=== PATIENT | female | born 2000 | race Caucasian/White ===

== ENCOUNTER 2019-04-03 20:17 | Inpatient (IN) | payer OTHER, MEDICAID, SELFPAY ==
[2014-03-21 11:29] VITALS: BMI 19.5
[2019-04-03 19:35] VITALS: BMI 22.8
[2019-04-03] MEDS: Lactated Ringers 1,000 ML 50 ML IV (20:50)
[2019-04-03] MEDS: Lactated Ringers 500 ML 999 ML IV (20:51)
[2019-04-03 21:03] LABS: Absolute Lymphocyte Count 0.88 X10^3/uL (0.83-4.51); Absolute Neutrophil Count 19.1 X10^3/uL (2.0-7.7); Basophil# 0.03 X10^3/uL; Basophil% 0.1 % (0-1); Eosinophil# 0.04 X10^3/uL; Eosinophils% 0.2 % (0-5); Hematocrit 35.5 % (37-47); Hemoglobin 12.3 g/dL (12.0-15.0); Lymphocyte # 0.88 X10^3/ul (4.0); Lymphocyte % 4.1 % (19-41); Mean Corp Hgb Conc 34.6 g/dL (32-36); Mean Corpuscular Hgb 33.2 pg (27.0-32.0); Mean Corpuscular Volume 95.7 fL (81-99); Mean Platelet Vol. 10.2 fl (6.2-12.0); Monocyte# 1.06 X10^3/uL; NRBC Flagged by Analyzer 0 % (0-5); Neutrophil # 19.14 X10^3/uL (2.7-7.7); Platelet Count 268 K/mm3 (150-450); RBC Distribution Width CV 11.9 % (11.6-14.6); Red Blood Count 3.71 M/mm3 (4.2-5.4); White Blood Count 21.3 K/mm3 (4.4-11.0)
--- NOTE | 2019-04-03 22:06 | PCM.HP.OB ---
History Date of Admission: 04/03/19 Final RAMA: 04/15/19 Gestational age: 38 Weeks and 2 Days History of this : This is a 18 year-old, G 1P0 at 38.2 weeks history of IUGR 8th percentile. Presents to labor and delivery in active labor found to be 5 cm at time of admission. Allergies No Known Allergies Allergy (Verified 03/19/14 15:48) Home Medications: Home Medications Ibuprofen [Advil] 200 mg PO Q6H PRN PRN 03/19/14 Multivitamins,Therapeutic [Multivitamin] 1 tablet PO DAILY 03/19/14 Smoking Status: Never smoker Alcohol: None Number of Fetus(es): 1 NST - FHR Rate Baby A Baseline: 150 Variability:: Moderate Accelerations:: 15 x 15 NST Reactive:: Yes Uterine Activity:: q1-2 History Past Pregnancies: Past Pregnancies Delivery Date Name GA/ Weeks Outcome Route Wt Sex Labor Length Anesthesia Delivery Location Provider FOB Physical Exam General: Alert, Oriented x3 Abdomen: Soft, Non Tender, Gravid Neurological: Cranial nerves II-XII grossly intact SCHEDULE CHECKER: Normal external genitalia Estimated gestational size: Small for gestational age Presentation: Cephalic Cervix Dilation (cm): 5 Assessment/Plan This is a 18 year-old, G 1P0 at 38.2 weeks in active labor, IUGR 8th percentile admit to L&D monitor FHR/TOCO anticipate epidural for pain mgmt if requested
[2019-04-03] MEDS: fentaNYL-bupivacaine (epidural) 100 ML BAG EPIDURAL (22:28)
[2019-04-04] VITALS (7 sets, daily range): BP systolic 112–146; BP diastolic 58–87; PULSE 64–101; RESP 16–18; TEMP 36.5–36.8; O2SAT 95–97
--- NOTE | 2019-04-04 00:20 | PCM.PN.BLA ---
Progress Note pt seen at bedside, AROM performed- Clear fluid. 9/100/+1.
[2019-04-04] MEDS: Lactated Ringers 500 ML 999 ML IV ×2 (01:46→03:55)
[2019-04-04] MEDS: Ondansetron 4 MG/2 ML Vial IV (01:51)
[2019-04-04] MEDS: Acetaminophen 500 MG Tablet 1000 MG PO ×3 (02:41→22:49)
[2019-04-04] MEDS: Oxytocin 30 units/NS 500 ml 30 UNITS/500 ML IV.SOLN 334 UNITS IV (02:57)
--- NOTE | 2019-04-04 03:34 | OP.PCM_ITS ---
Problem List (1) Vaginal delivery Status: Acute (2) First degree perineal laceration Status: Acute (3) Maternal fever during labor Status: Acute Vaginal Delivery Maternal Presentation: Active Labor Amniotic Membrane Rupture Type: Artificial Amniotic Fluid Description: Clear Final RAMA: 04/15/19 Final RAMA Source: US <20 weeks Gestational age: 38 Weeks and 3 Days Date of Procedure: 04/04/19 Pre-Operative Diagnosis: Active Labor Post-Operative Diagnosis: Surgery/ Procedure Performed: Spontaneous Vaginal Delivery Type of Anesthesia: Epidural Description of Procedure: Patient complete and with pushing deep periodic variable decelerations with every contraction. En route to Hospital and notified of tracin g and poor initial pushing efforts and evaluation of tracing. Arrived with on unit. Maternal fever 101.9 and patient warm to the touch. tachycardia but resolved. Suspected triple I. Assisted with pushing efforts and fundal pressure to expedite delivery. Discussed possible vacuum extraction but good pushing efforts and not needed, decent to +4 station. Etiquette Teacher called to room. head delivered with maternal efforts, body forth coming. APGARS 5, 7, 8 respectively. Infant delivered and placed on maternal abdomen, poor tone, color and no spontaneous cry. Cord clamped and cut and handed to awaiting nursing staff to warmer. VBG collected, unable to collected ABG as artery empty. Pitocin started for active 3rd stage management. Placenta partial delivery and attempted manual removal. Unable to fully remove, completed removal of placenta. 3 vessel cord. Placenta removed mostly intact with separation of some tissue.Placenta sent to pathology. Perineum inspected and revealed 1st degree perineal laceration. Repaired under epidural analgesia with 3.0 vicryl, well approximated and hemostasis achieved. vaginal sweep completed. Sponge and instrument count correct. Mom and baby stable, baby placed skin to skin, family bonding well. planning to breastfeed. Ancef 2gm IV q8h x 2 doses for suspected triple I and manual removal of placen ta. Presentation: Vertex Placental Delivery Description: Spontaneous Placenta Disposition: [facility] Cord Vessel Description: 3 Vessels Cord Gases drawn per routine: VBG - unable to get ABG Cord Entanglement: None Estimated Blood Loss: 400ml Infant A gender: Female (1 minute): 5 - 8 at 10 minutes (5 minute): 7 Episiotomy Description: None Laceration: Perineal Extension/lac, 1st degree Medications given after delivery: IV Pitocin
--- NOTE | 2019-04-04 03:41 | PLAC_PTH ---
PATIENT: MESFIN TRACY LOC: [facility] U#:[id number] AGE/SX: 18/F ROOM: WP009 RE04/03/[address]: Dr. Samaria Michael, MDDOB: 2000 BED: 1 DIS: 04/06/2019 SPEC #: [id number] RECD: 04/04/19 03:57 STATUS: PHONG JUAN F #: [id number] TIP: 04/04/19 03:[address]: Samaria Michael DEPT: SURGICAL PATHOLOGY RECD BY: Raza Kelsey ENTERED: 04/04/19 09:48 SP TYPE: PLACENTA OTHR DR: Dr. Mer Regan MD Tissues: Placenta, NOS Procedures: Surgery Specimen Level V HEADER OPERATION: Vaginal delivery PRE-OP DIAGNOSIS: IUGR, suspected triple I TISSUE SUBMITTED: Placenta MICROSCOPIC DIAGNOSIS Placenta: Placental disc - third trimester placenta, fragmented (356 gm). - A focal area of infarction (0.5 cm in greatest dimension). Membranes - mild acute chorioamnionitis. Umbilical cord - three blood vessels and no pathologic diagnosis. SJ:huma 03/06/20 MICROSCOPIC DESCRIPTION Slides are reviewed. GROSS DESCRIPTION SPECIMEN: PLACENTA / CLINICAL INFORMATION: A. Weight: 2.233 kg B. Gestational Age: 38 weeks C. Sex: Female PLACENTAL WEIGHT (POST FIXATION): The placental pieces weigh in aggregate 356 gm. PLACENTAL DIMENSIONS: The largest piece of body of the placenta measures 13 x 13 x 4 cm and the smaller pieces measure in aggregate 8 x 8 x 3 cm. PLACENTAL SHAPE: Received is a disrupted placenta in three pieces. The completeness of the placenta cannot be assessed due to fragmented nature of the body of the placenta. PLACENTAL WEIGHT FOR GESTATIONAL AGE: Within 10-99th percentile MEMBRANES - Present A. Insertion: Marginal B. Site of rupture from edge: The membranes attached to the largest piece of the placenta are fragmented and distance of rupture cannot be assessed. C. Color of membrane: Fernández-sears D. Abnormalities: None UMBILICAL CORD - Present A. Color: Fernández-sears B. Insertion: Marginal C. Length: 26 cm D. Diameter: 1 cm E. Number of vessels: Three F. Abnormalities: None PLACENTAL DISC - Present A. Color of surface: Fernández-sears B. surface abnormalities: None C. Maternal cotyledons: Intact with minimal tears D. Attached retro placental clot: No clot E. Cut surface: Dark red and spongy F. Lesions: Sections reveal a fernández, indurated lesion measuring 0.5 cm in greatest dimension. G. Separate clot: Absent SECTIONS SUBMITTED: 1. Membrane roll 2. Cord, maternal end 3. Cord, end 4. Placental disc, and maternal surfaces 5. Placental disc, and maternal surfaces 6. Placental disc, and maternal surfaces, lesion SJ:rg 04/05/19 TC:2 CPT: 23560
[2019-04-04] MEDS: Cefazolin 2 GM in 0.9% Normal Saline 100 ML IV ×2 (04:31→14:03)
[2019-04-04] MEDS: 0.9% Saline Lock 10 ML Syringe IV ×2 (04:31→05:40)
[2019-04-04] MEDS: Ibuprofen 600 MG Tablet PO ×2 (10:08→18:25)
[2019-04-05] MEDS: Ibuprofen 600 MG Tablet PO ×2 (00:21→19:00)
[2019-04-05 04:05] VITALS: BP 108/66; PULSE 82; RESP 14; TEMP 36.6
[2019-04-05 04:30] LABS: Absolute Lymphocyte Count 2.07 X10^3/uL (0.83-4.51); Absolute Neutrophil Count 18.6 X10^3/uL (2.0-7.7); Basophil# 0.06 X10^3/uL; Basophil% 0.3 % (0-1); Eosinophil# 0.12 X10^3/uL; Eosinophils% 0.6 % (0-5); Hemoglobin 10.5 g/dL (12.0-15.0); Lymphocyte # 2.07 X10^3/ul (4.0); Lymphocyte % 9.6 % (19-41); Mean Corp Hgb Conc 33.9 g/dL (32-36); Mean Corpuscular Volume 97.5 fL (81-99); Mean Platelet Vol. 10.1 fl (6.2-12.0); Monocyte# 0.48 X10^3/uL; Monocyte% 2.2 % (0-10); NRBC Flagged by Analyzer 0 % (0-5); Neutrophil # 18.62 X10^3/uL (2.7-7.7); Neutrophil % 86.6 % (47-70); Platelet Count 215 K/mm3 (150-450); RBC Distribution Width CV 12.6 % (11.6-14.6); RBC Distribution Width SD 44.7 fl (35.1-43.9); Red Blood Count 3.18 M/mm3 (4.2-5.4); White Blood Count 21.5 K/mm3 (4.4-11.0)
[2019-04-05 09:50] VITALS: BP 132/86; PULSE 77; RESP 16; TEMP 36.6; O2SAT 96
[2019-04-05] MEDS: Senna/Docusate Sodium 1 Tablet PO (10:07)
[2019-04-05] MEDS: Acetaminophen 500 MG Tablet 1000 MG PO (10:07)
[2019-04-05 14:45] VITALS: BP 121/80; PULSE 91; RESP 16; TEMP 36.1
--- NOTE | 2019-04-05 15:00 | CASEMGMT ---
Social Work Labor and Delivery Consult received for maternal history of depression. Baby has also been admitted to the [facility]. Chart has been reviewed. Attempted to meet with mother of baby (MOB) this date, but MOB just getting back from the SCN and pumping, then planning to take a nap. milking worker offered to come back tomorrow, as baby remains in SCN and MOB will be a hospital still. MOB agreeable. Plan: See MOB as time allows on 04.06.2019. -JEANNETTE Mckay, BEATER ENGINEER HELPER
--- NOTE | 2019-04-05 17:59 | PN.OBGYN_ITS ---
Patient Problems: Active and Suspected Problems (Last Updated 04/03/19 @ 22:07 by Samaria Holley MD) Vaginal delivery (Acute) First degree perineal laceration (Acute) Maternal fever during labor (Acute) Subjective: Seen in special care nursery. She is feeling well. Pain is controlled. Ambulating and voiding without difficulty. She denies lightheadedness, dizziness, chest pain, shortness of breath, leg pain. Lochia normal. She is breast-feeding. - Physical Exam Vitals/I&O's: Vital Signs Temp Pulse Resp BP Pulse Ox 97.0 F L 91 16 121/80 H 96 04/05/19 14:45 04/05/19 14:45 04/05/19 14:45 04/05/19 14:45 04/05/19 09:50 Oxygen Delivery Method Room Air Weight: 137 lb 6.4 oz Body Mass Index (BMI) 22.8 Intake and Output for Last 24 Hours 04/03/19 04/04/19 04/05/19 23:59 23:59 23:59 Intake Total 605.83 / 605.83 2290.00 / 2290.00 Balance 605.83 / 605.83 2290.00 / 2290.00 General: Alert, No apparent distress HEENT: Atraumatic Abdomen: Soft, Non Tender, - - FF@U-1 Extremities: No edema, No Calf Tenderness Skin: No rashes Neurological: Neuro grossly intact Psych/Mental Status: Normal Affect, Appropriate Laboratory Results 04/05/19 04:10: WBC 21.5 H, RBC 3.18 L, Hgb 10.5 L, Hct 31.0 L, MCV 97.5, MCH 33.0 H, MCHC 33.9, RDW Std Deviation 44.7 H, RDW Coeff of Bora 12.6, Plt Count 215, MPV 10.1, Immature Gran % (Auto) 0.700, Neut % (Auto) 86.6 H, Lymph % (Auto) 9.6 L, [place] % (Auto) 2.2, Eos % (Auto) 0.6, Baso % (Auto) 0.3, Absolute Neuts (auto) 18.6 H, Absolute Lymphs (auto) 2.07, Nucleated RBC % 0 Current Medications Acetaminophen (Tylenol) 1,000 mg PO Q8H PRN PRN PRN Reason: Pain Score 1-3/10 Last Admin: 04/05/19 10:07 Dose: 1,000 mg Documented by: Bisacodyl (Dulcolax) 10 mg RECTAL UD PRN PRN Reason: If no BM Dibucaine (Dibucaine) 1 applic TOPICAL TID PRN PRN; Protocol PRN Reason: Discomfort Hydrocortisone (Hytone) 1 applic TOPICAL TID PRN PRN; Protocol PRN Reason: Discomfort Naloxone HCl 4 mg/ Dextrose 504 mls @ 0 mls/hr IV .Q0M PRN; Protocol PRN Reason: To maintain Resp. rate >10 Ibuprofen (Motrin) 600 mg PO Q6H PRN PRN PRN Reason: Pain Score 1-3/10 Last Admin: 04/05/19 00:21 Dose: 600 mg Documented by: Methylergonovine Maleate (Methergine) 0.2 mg IM X1 PRN PRN Reason: Excess bleeding/uterine atony Nalbuphine HCl (Nubain) 5 mg IV Q3H PRN PRN PRN Reason: ITCHING Naloxone HCl (Narcan) 0.02 mg IV Q1M PRN PRN Reason: RR< 10 AND PT UNRESPONSIVE Ondansetron HCl (Zofran) 4 mg IV Q4H PRN PRN PRN Reason: Nausea Senna/Docusate Sodium (Senokot-S, Kristyn-Colace) 1 - 2 tablet PO DAILY PRN PRN PRN Reason: Constipation Last Admin: 04/05/19 10:07 Dose: 2 tablet Documented by: Simethicone (Mylicon) 80 mg PO PCHS PRN PRN Reason: Indigestion/Stomach pain Sodium Chloride () 5 - 15 ml IV UD PRN PRN Reason: SALINE FLUSH Last Admin: 04/04/19 05:40 Dose: 10 ml Documented by: Medical Necessity - Tobacco Use Smoking Status: Never smoker Assessment/Plan All Active Problems (Last Updated 04/03/19 @ 22:07 by Samaria Michael MD) Vaginal delivery (Acute) First degree perineal laceration (Acute) Maternal fever during labor (Acute) PPD#1 s/p - Pt doing well - Afebrile - - Baby in special care nursery - Dispo: Routine care
[2019-04-05 21:34] VITALS: BP 124/70; PULSE 75; RESP 18; TEMP 36.4
[2019-04-06 02:00] VITALS: BP 121/70; PULSE 81; RESP 18; TEMP 36.6
[2019-04-06] MEDS: Ibuprofen 600 MG Tablet PO (05:29)
[2019-04-06 09:45] VITALS: BP 120/80; PULSE 65; RESP 16; TEMP 36.7
[2019-04-06] MEDS: Acetaminophen 500 MG Tablet 1000 MG PO (10:15)
[2019-04-06] MEDS: Senna/Docusate Sodium 1 Tablet PO (10:15)
--- NOTE | 2019-04-06 13:11 | DCINST_ITS ---
Discharge Diet: No Restrictions Discharge Activity: May Drive, May Shower May resume sexual activity in: 6 weeks Weight Bearing Status: Weight bearing as tolerated Additional Instructions: If you experience any of the following, contact your healthcare provider. * Bleeding that soaks a pad every hour for 2 hours * Fever 100.4 or higher * Unrelieved incision or abdominal pain * Swelling, redness, discharge or bleeding from your incision or episiotomy site * Your incision begins to separate * Problems urinating (including inability to urinate or burning while urinating). * Visual changes * Severe headache * Flu-like symptoms * Pain or redness in one of both of your breasts * Pain, warmth, tenderness or swelling in your legs, especially the calf area * Frequent nausea and vomiting * Symptoms of depression or anxiety If you experience any of the following, call 911 or go to the nearest Emergency Room. * Chest pain * Problems breathing * Seizure activity * Partial or complete paralysis of a body part, slurred speech, weakness or drooping of the face, or a sudden inability to walk or hold your balance Allergies/Adverse Reactions: Allergies No Known Allergies Allergy (Verified 03/19/14 15:48) Medications to take at Discharge Multivitamins,Therapeutic [Multivitamin] 1 tablet PO DAILY 03/19/14 Ibuprofen [Motrin] 600 mg PO Q6H PRN PRN #40 tab 04/06/19 The following prescriptions were given: Ibuprofen [Motrin] 600 mg PO Q6H PRN PRN #40 tab PRN Reason: Pain Score 1-3/10 Transmission Status: Pending to [id number] Primary Care Physician: Mer Regan MD [Primary Care Provider] - Test Results: Test results from this visit will be discussed in further detail at your follow- up appointment, if applicable.
--- NOTE | 2019-04-06 13:11 | PCM.DCVAG ---
Discharge Diet: No Restrictions Discharge Activity: May Drive, May Shower May resume sexual activity in: 6 weeks Weight Bearing Status: Weight bearing as tolerated Additional Instructions: If you experience any of the following, contact your healthcare provider. Bleeding that soaks a pad every hour for 2 hours Fever 100.4 or higher Unrelieved incision or abdominal pain Swelling, redness, discharge or bleeding from your incision or episiotomy site Your incision begins to separate Problems urinating (including inability to urinate or burning while urinating). Visual changes Severe headache Flu-like symptoms Pain or redness in one of both of your breasts Pain, warmth, tenderness or swelling in your legs, especially the calf area Frequent nausea and vomiting Symptoms of depression or anxiety If you experience any of the following, call 911 or go to the nearest Emergency Room. Chest pain Problems breathing Seizure activity Partial or complete paralysis of a body part, slurred speech, weakness or drooping of the face, or a sudden inability to walk or hold your balance Allergies/Adverse Reactions: Allergies No Known Allergies Allergy (Verified 03/19/14 15:48) Medications to take at Discharge Multivitamins,Therapeutic [Multivitamin] 1 tablet PO DAILY 03/19/14 Ibuprofen [Motrin] 600 mg PO Q6H PRN PRN #40 tab 04/06/19 The following prescriptions were given: Ibuprofen [Motrin] 600 mg PO Q6H PRN PRN #40 tab PRN Reason: Pain Score 1-3/10 Transmission Status: Pending to [id number] Primary Care Physician: Mer Regan MD [Primary Care Provider] - Test Results: Test results from this visit will be discussed in further detail at your follow-up appointment, if applicable.
--- NOTE | 2019-04-06 13:11 | PCM.PN.OB ---
Patient Problems: Active and Suspected Problems (Last Updated 04/03/19 @ 22:07 by Samaria Michael MD) Vaginal delivery (Acute) First degree perineal laceration (Acute) Maternal fever during labor (Acute) Subjective: No complaints - Physical Exam Vitals/I&O's: Vital Signs Temp Pulse Resp BP Pulse Ox 98.0 F 65 16 120/80 96 04/06/19 09:45 04/06/19 09:45 04/06/19 09:45 04/06/19 09:45 04/05/19 09:50 Oxygen Delivery Method Room Air Weight: 137 lb 6.4 oz Body Mass Index (BMI) 22.8 Intake and Output for Last 24 Hours 04/04/19 04/05/19 04/06/19 23:59 23:59 23:59 Intake Total 2290.00 / 2290.00 Balance 2290.00 / 2290.00 General: Alert, Oriented x3 Abdomen: Soft, Non Tender, Non-Distended - ff mid & below Extremities: No Calf Tenderness Neurological: Cranial nerves II-XII grossly intact Current Medications Acetaminophen (Tylenol) 1,000 mg PO Q8H PRN PRN PRN Reason: Pain Score 1-3/10 Last Admin: 04/06/19 10:15 Dose: 1,000 mg Documented by: Bisacodyl (Dulcolax) 10 mg RECTAL UD PRN PRN Reason: If no BM Dibucaine (Dibucaine) 1 applic TOPICAL TID PRN PRN; Protocol PRN Reason: Discomfort Hydrocortisone (Hytone) 1 applic TOPICAL TID PRN PRN; Protocol PRN Reason: Discomfort Naloxone HCl 4 mg/ Dextrose 504 mls @ 0 mls/hr IV .Q0M PRN; Protocol PRN Reason: To maintain Resp. rate >10 Ibuprofen (Motrin) 600 mg PO Q6H PRN PRN PRN Reason: Pain Score 1-3/10 Last Admin: 04/06/19 05:29 Dose: 600 mg Documented by: Methylergonovine Maleate (Methergine) 0.2 mg IM X1 PRN PRN Reason: Excess bleeding/uterine atony Nalbuphine HCl (Nubain) 5 mg IV Q3H PRN PRN PRN Reason: ITCHING Naloxone HCl (Narcan) 0.02 mg IV Q1M PRN PRN Reason: RR< 10 AND PT UNRESPONSIVE Ondansetron HCl (Zofran) 4 mg IV Q4H PRN PRN PRN Reason: Nausea Senna/Docusate Sodium (Senokot-S, Kristyn-Colace) 1 - 2 tablet PO DAILY PRN PRN PRN Reason: Constipation Last Admin: 04/06/19 10:15 Dose: 2 tablet Documented by: Simethicone (Mylicon) 80 mg PO PCHS PRN PRN Reason: Indigestion/Stomach pain Sodium Chloride () 5 - 15 ml IV UD PRN PRN Reason: SALINE FLUSH Last Admin: 04/04/19 05:40 Dose: 10 ml Documented by: Medical Necessity - Tobacco Use Smoking Status: Never smoker Assessment/Plan All Active Problems (Last Updated 04/03/19 @ 22:07 by Samaria Michael MD) Vaginal delivery (Acute) First degree perineal laceration (Acute) Maternal fever during labor (Acute) PPD#2 D/c to hotel later today
[2019-04-06 13:49] LABS: Pathology Specimen OB SEE PATHOLOGY REPORT
[2019-04-06 16:00] VITALS: BP 130/83; PULSE 75; RESP 16; TEMP 37.2
--- NOTE | 2019-04-06 18:34 | NURSING ---
1830- discharged to courtesy room
== END 2019-04-06 18:30 | disposition home or self-care (01) | DRG 796 ==
LOC: WPOUT 20:19 → WP 20:19
PROVIDERS: Advanced Practice Midwife; Admitting Provider Obstetrics & Gynecology; PCP Pediatrics; Referring Provider Obstetrics & Gynecology; Visit Provider Obstetrics & Gynecology
DX: O36.5930 Maternal care for other known or suspected poor fetal growth, third trimester, not applicable or unspecified (principal); O41.1230 Chorioamnionitis, third trimester, not applicable or unspecified; Z37.0 Single live birth; O76 Abnormality in fetal heart rate and rhythm complicating labor and delivery; O70.0 First degree perineal laceration during delivery; Z3A.38 38 weeks gestation of pregnancy
CPT/HCPCS: 59025; 59050; 85025; 86850; 86900; 86901; 88307; 99218; J7120; A4216; G0378; J2405

== ENCOUNTER 2024-03-03 09:31 | Emergency (ER) | payer OTHER, MEDICAID, SELFPAY ==
[2024-03-03 09:32] VITALS: BP 121/75; PULSE 85; RESP 16; TEMP 36.6; O2SAT 98; BMI 18.3
--- NOTE | 2024-03-03 10:28 | ED.VIS.GI ---
HPI HPI - GI History of Present Illness Chief Complaint: Nausea/Vomiting/Diarrhea Informant: patient Abdominal Pain/Flank Pain Onset: Yesterday Context: Sudden Onset Timing: Continuous Quality: Cramping Location: Diffuse Worsened by: Nothing Relieved by: Nothing Nausea/Vomiting/Emesis GI Symptom: Positive for Nausea and Vomiting Onset: Yesterday Quality: Positive for Nonbilious; Negative for Blood streaks, Coffee ground or Hematemesis Diarrhea/Melena/Hematochezia GI Symptom: Positive for Diarrhea; Negative for Melena or Hematochezia Associated Symptoms Associated Symptoms: Positive for Frequency; Negative for Dysuria or Hematuria Narrative Narrative: Patient presents with nausea, vomiting, diarrhea, and abdominal pain that began yesterday. Patient states it began rather suddenly. Patient states her pain has been constant. Patient states her pain is diffuse across her entire abdomen. Patient states nothing makes it better nothing makes it worse. Patient admits to some nausea and vomiting. Patient denies any hematemesis or coffee-ground emesis. Patient admits to some diarrhea but denies any melena or hematochezia. Patient admits to some urinary frequency but denies any dysuria or hematuria. Patient states she does not have menstrual periods because she has an IUD in place. [facility] Medical History (Updated 03/03/24 @ 12:[address] August Montes DO) Depression affecting Home Medications ?Medication ?Instructions ?Recorded ?Last Taken ?Type ondansetron 4 mg disintegrating 4 mg PO Q8H PRN PRN Nausea #10 tabs 03/03/24 Unknown Rx tablet Allergy/AdvReac Type Severity Reaction Status Date / Time No Known Allergies Allergy Verified 03/03/24 09:32 Surgical History (Updated 03/03/24 @ 10:[address] August Montes DO) Status post ORIF of fracture of ankle Social History (Updated 03/03/24 @ 10:[address] August Montes DO) Smoking Status: Light Smoker (<10/day) ROS ROS ED Constitutional Constitutional ED: Denies chills or fever(s) Eyes Eyes: Denies blurry vision or change in vision ENT ENT ED: Denies rhinorrhea or sore throat Cardiovascular Cardiovascular: Denies chest pain or palpitations Respiratory/Chest Respiratory/Chest: Denies cough or dyspnea Gastrointestinal Gastrointestinal: Reports abdominal pain, diarrhea, nausea and vomiting; Denies melena Genitourinary Genitourinary ED: Reports urinary frequency; Denies dysuria or hematuria Musculoskeletal Musculoskeletal: Reports back pain; Denies neck pain Integumentary Denies abscess or rash Neurologic Neurologic: Reports headache(s); Denies weakness Allergic/Immunologic Allergic/Immunologic ED: Denies mouth swelling or urticaria EXAM Physical Exam Const Vital Signs: 03/03/24 09:32 03/03/24 11:32 Temperature 97.8 F Temperature Source Temporal Pulse Rate 85 78 Respiratory Rate 16 16 Blood Pressure 121/75 H 131/64 H Blood Pressure Mean 90 86 Pulse Ox 98 98 Oxygen Delivery Method Room Air Room Air Positive well nourished and well developed General Appearance ED: well developed and NAD HEENT Reports moist mucous membranes normocephalic and atraumatic Neck supple and no JVD Resp normal respiratory effort and clear to auscultation bilaterally Cardio regular rate and regular rhythm GI non-distended Palpation: soft and tender LLQ, LUQ, periumbilical and suprapubic; Negative for guarding or rebound tenderness present Extremity full ROM General Extremety ED: Negative for edema or tenderness General Extremity: Negative for edema Neuro CN's II-XII intact bilaterally, moves all extremities and no sensory deficits noted Sensorium / Orientation: alert Motor Exam: strength 5/5 throughout Psych mental status grossly normal and thought process normal MDM MDM MDM Narrative Medical decision making narrative: Differential diagnosis includes viral illness, , ectopic , gastroenteritis, appendicitis, colitis, bowel obstruction, and perforation. CBC will be obtained to assess for leukocytosis and anemia. Comprehensive metabolic profile will be obtained to assess for hepatic function, renal function, and electrolyte abnormality. Lipase will be obtained to assess for pancreatitis. Urinalysis will be obtained to assess for urinary tract infection and hematuria. Serum hCG will be obtained to assess for . Lab Data Attestation: I reviewed the patient's lab results. Lab results narrative: CBC was reviewed. There is a mild leukocytosis of 16.4. This was improved from previous result. The remainder was within normal limits. Comprehensive metabolic profile was reviewed. Potassium was slightly low at 3.3. The remainder is within normal limits. Lipase was reviewed and was normal at 20. Serum hCG was reviewed and was negative. Urinalysis was reviewed. There is no evidence of urinary tract infection or hematuria. Labs: Laboratory Results - last 24 hr 03/03/24 03/03/24 09:45 10:40 WBC 16.4 H RBC 4.27 Hgb 14.1 Hct 41.3 MCV 96.7 MCH 33.0 H MCHC 34.1 RDW Std Deviation 44.4 H RDW Coeff of Bora 12.5 Plt Count 272 MPV 9.6 Immature Gran % (Auto) 0.300 Neut % (Auto) 93.1 H Lymph % (Auto) 2.8 L [place] % (Auto) 3.5 Eos % (Auto) 0.1 Baso % (Auto) 0.2 Absolute Neuts (auto) 15.2 H Absolute Lymphs (auto) 0.46 L Nucleated RBC % 0 Sodium 140 Potassium 3.3 L Chloride 108 H Carbon Dioxide 25.0 Anion Gap 7 BUN 9 Creatinine 0.72 Estim Creat Clear Calc 94.08 Est GFR (MDRD) Af Amer 127 Est GFR (MDRD) Non-Af 105 BUN/Creatinine Ratio 12.5 Glucose 109 H Calcium 8.4 L Total Bilirubin 0.80 AST 15 ALT 17 Alkaline Phosphatase 61 Total Protein 7.3 Albumin 4.0 Globulin 3.3 Albumin/Globulin Ratio 1.2 Lipase 20 Serum , Qual NEGATIVE Urine Color Yellow Urine Clarity Clear Urine pH 6.0 Ur Specific [place] 1.020 Urine Protein 30 H Urine Glucose (UA) Normal Urine Ketones Negative Urine Occult Blood 10 H Urine Nitrite Negative Urine Bilirubin Negative Urine Urobilinogen Normal Ur Leukocyte Esterase 25 H Urine RBC 0-5 SEEN Urine WBC 0-5 SEEN Ur Squamous Epith Cells 0-5 SEEN Urine Bacteria RARE Urine Mucus 0 SEEN Treatment and Re-Evaluation :: Patient was given IV fluids and Zofran. Patient was feeling better on reevaluation. Patient was advised of her findings. Patient was instructed to start with a liquid diet and advance as tolerated. Patient was given a prescription for Zofran. Patient was instructed to follow-up with her primary care physician in 5 to 7 days. Patient was instructed to return if worse in any way. Patient understood and was agreeable with the plan. All questions were answered. Discharge Plan Triage Chief Complaint: Nausea/Vomiting/Diarrhea ED Provider: August Montes Dx/Rx/DC Orders Clinical Impression: Nausea, vomiting, and diarrhea, Leukocytosis Instructions: ED Gastroenteritis, Viral (Adult) Prescriptions: New ondansetron 4 mg tablet,disintegrating 4 mg PO Q8H PRN PRN (Reason: Nausea) Qty: 10 0RF Primary Care Provider: Mer Regan Referrals: Mer Regan MD [Primary Care Provider] - 5-7 Days Print Language: Tongan Disposition Disposition: Home, Self Care
[2024-03-03 10:32] LABS: Absolute Lymphocyte Count 0.46 X10^3/uL (0.83-4.51); Absolute Neutrophil Count 15.2 X10^3/uL (2.0-7.7); Basophil# 0.03 X10^3/uL; Basophil% 0.2 % (0-1); Eosinophil# 0.02 X10^3/uL; Eosinophils% 0.1 % (0-5); Hematocrit 41.3 % (37-47); Hemoglobin 14.1 g/dL (12.0-15.0); Lymphocyte # 0.46 X10^3/ul (0.83-4.51); Lymphocyte % 2.8 % (19-41); Mean Corp Hgb Conc 34.1 g/dL (32-36); Mean Corpuscular Volume 96.7 fL (81-99); Mean Platelet Vol. 9.6 fl (6.2-12.0); Monocyte# 0.58 X10^3/uL; Monocyte% 3.5 % (0-10); NRBC Flagged by Analyzer 0 % (0-5); Neutrophil # 15.22 X10^3/uL (2.7-7.7); Neutrophil % 93.1 % (47-70); POSITIVE DIFFERENTIAL YES; Platelet Count 272 K/mm3 (150-450); RBC Distribution Width CV 12.5 % (11.6-14.6); RBC Distribution Width SD 44.4 fl (35.1-43.9); Red Blood Count 4.27 M/mm3 (4.2-5.4); White Blood Count 16.4 K/mm3 (4.4-11.0)
[2024-03-03 10:39] LABS: Internal QC Validated? YES +Cl - CLEAR BKGD; Pregnancy, Serum, hCG Quali. NEGATIVE Negative
[2024-03-03 10:44] LABS: Mucous, Urine 0 SEEN /hpf (<or=2+)
[2024-03-03] MEDS: 0.9% Normal Saline (1000mL) 1,000 ML 1000 ML IV (10:45)
[2024-03-03] MEDS: Ondansetron 4 MG/2 ML Vial IV (10:45)
[2024-03-03 10:48] LABS: ALB/GLOB Ratio 1.2 RATIO (0.9-2.4); AST(SGOT) 15 U/L (15-37); Alanine Aminotransfer ALT/SGPT 17 U/L (13-56); Alkaline Phosphatase 61 U/L (45-117); Anion Gap 7 (5-15); BUN 9 mg/dL (7-18); BUN/Creat Ratio 12.5 RATIO (10-20); Calcium,Total 8.4 mg/dL (8.5-10.1); Chloride 108 mmol/L (98-107); Creatinine, Serum 0.72 mg/dL (0.55-1.02); EST Glomerular Filtration Rate 105 mL/min (>60); Est Glom Filt Rate - Afr Amer 127 mL/min (>60); Estimated Creatinine Clearance 94.08 ml/min; Globulin 3.3 g/dL (2.2-4.2); Glucose 109 mg/dL (74-106); Potassium 3.3 mmol/L (3.5-5.1); Protein, Total 7.3 g/dL (6.4-8.2); Sodium Level 140 mmol/L (136-145)
[2024-03-03 10:52] LABS: Color, Urine Yellow (Yellow); Glucose, Dipstick Normal (Normal); Ketone-Dipstick Negative (Negative); Leukocyte Esterase-Dipstick 25 /ul (Negative); Nitrite-Dipstick Negative (Negative); Occult Blood-Urine 10 /ul (Negative); Protein-Dipstick 30 mg/dl (Negative); Urine Bilirubin Dipstick Negative (Negative); Urine Clarity Clear (Clear); Urine Urobilinogen Normal (Normal)
[2024-03-03 11:00] LABS: Lipase 20 U/L (13-75)
[2024-03-03 11:02] LABS: Bacteria RARE /hpf (None Seen); Red Blood Cells-Urine 0-5 SEEN /hpf (0-5); Squamous Epithelial Cells - UA 0-5 SEEN /hpf (5-10); White Blood Cells 0-5 SEEN /hpf (0-5)
[2024-03-03 11:32] VITALS: BP 131/64; PULSE 78; RESP 16; O2SAT 98
[2024-03-03 12:14] VITALS: BP 128/76; PULSE 89; RESP 16; TEMP 37.1; O2SAT 99
== END 2024-03-03 12:15 | disposition home or self-care (01) ==
PROVIDERS: Emergency Provider Emergency Medicine; PCP Pediatrics; Visit Provider Emergency Medicine
DX: R11.2 Nausea with vomiting, unspecified (principal); D72.829 Elevated white blood cell count, unspecified; R35.0 Frequency of micturition; R19.7 Diarrhea, unspecified; R10.9 Unspecified abdominal pain; Z97.5 Presence of (intrauterine) contraceptive device; F17.200 Nicotine dependence, unspecified, uncomplicated
CPT/HCPCS: 80053; 81001; 83690; 84703; 85025; 96374; 99283; J2405